=== PATIENT | female | born 1980 | race African-American/Black ===

== ENCOUNTER 2022-12-11 14:12 | Emergency (ER) | payer MEDICAID, OTHER ==
[~2022-12-11] VITALS: Ht 170.2 cm; Wt 145.0 kg
[~2022-12-11 14:12] MED LIST: IBUP-2077 PO
[2022-12-11 14:14] VITALS: BP 150/78
[2022-12-11] MEDS ORDERED: ACETAMINOPHEN 325MG TABLET PO STA (14:18)
[2022-12-11] MEDS ORDERED: MAGNESIUM/ALUMINUM HYDROXIDE/SIMETHICONE 30ML UDC PO STA (14:18)
[2022-12-11] MEDS ORDERED: ONDANSETRON 4MG ODT PO SCH (14:30)
[2022-12-11 15:00] LABS: PROTHROMBIN TIME 11.1 sec (9.6-11.0)
[2022-12-11 15:01] LABS: BASOPHILS % 0.2 % (0.0-2.0); EOSINOPHILS % 0.2 % (0.0-5.0); HEMATOCRIT. 42.9 % (36.0-48.0); HEMOGLOBIN. 14.3 g/dL (12.0-16.0); LYMPHOCYTES % 16.5 % (20.0-50.0); MEAN CORPUSCULAR HEMOGLOBIN 31.1 pg (28.0-32.0); MEAN CORPUSCULAR VOLUME 93.1 fL (81.0-99.0); MEAN PLATELET VOLUME 8.1 fl (7.4-10.4); MONOCYTES % 5.7 % (2.0-8.0); NEUTROPHILS % 77.4 % (40.0-76.0); PLATELET 285 x1000/uL (130-400); RED BLOOD CELL COUNT 4.61 mill/uL (4.2-5.4); RED CELL DISTRIBUTION WIDTH 14.8 % (11.6-14.6)
[2022-12-11 15:04] LABS: HCG SCREEN NEGATIVE
[2022-12-11 15:05] LABS: CHLORIDE 106 mEq/L (98-107)
[2022-12-11 15:13] LABS: ETHANOL BLOOD < 10 mg/dL
[2022-12-11] MEDS ORDERED: ONDA4TAB50 MT (18:27)
[2022-12-11] MEDS ORDERED: MAG355OR21 MT (18:27)
== END 2022-12-11 19:08 | disposition home or self-care (01) ==
LOC: ER 14:12
DX: B34.9 Viral infection, unspecified (principal); K52.9 Noninfective gastroenteritis and colitis, unspecified; J45.909 Unspecified asthma, uncomplicated
CPT/HCPCS: 36415; 76705; 80053; 80320; 84703; 85025; 93005; 99285; G0480